=== PATIENT | male | born 1945 | race Caucasian/White ===

== ENCOUNTER 2020-11-02 10:26 | Outpatient (CLI) | payer MEDICARE, SELFPAY ==
--- NOTE | ~2020-11-02 | CT_ITS ---
EXAMINATION: CT brain wo con DATE: 11/02/2020 10:53 INDICATION: Alzheimer's dementia, behavioral disturbance. Urinary incontinence. Frequent falls. TECHNIQUE: Computed tomography (CT) of the head was performed without intravenous contrast. The mA wa s adjusted according to patient size. Iterative reconstruction technique was employed. Exam dose: 60 5.33 mGy-cm total exam DLP. COMPARISON: 05/16/2015 MRI brain/brainstem 05/16/2015 CT brain FINDINGS: Again noted is central and cortical cerebral and cerebellar atrophy. There is prominent dim inished attenuation of the subcortical and periventricular cerebral white matter. Bilateral carotid s iphon internal carotid artery calcifications are noted. No intracranial mass lesion or hemorrhage or cerebrovascular accident is evident. No midline shift or mass effects. No subdural or epidural hematoma. No fracture or bone destruction of the cranial vault. Included paranasal sinuses and mastoid air cell s are normally developed and aerated. IMPRESSION: Cerebral atherosclerosis and chronic small vessel ischemic changes of the cerebral white matter Cerebral and cerebellar atrophy No acute intracranial finding or skull fracture or significant change since 05/16/2015 Reviewed, dictated and finalized at [facility]. Reviewed, dictated and finalized at [facility]. [facility] DUTY NURSE IMPRESSION: Cerebral atherosclerosis and chronic small vessel ischemic changes of the cerebral white matter Cerebral and cerebellar atrophy No acute intracranial finding or skull fracture or significant change since 04/18
== END 2020-11-02 10:27 | disposition home or self-care (01) ==
LOC: ANHIMG 10:34
PROVIDERS: PCP Family Medicine; Visit Provider Psychiatry & Neurology Neurology
DX: R32 Unspecified urinary incontinence (principal); G30.9 Alzheimer's disease, unspecified; F02.80 Dementia in other diseases classified elsewhere, unspecified severity, without behavioral disturbance, psychotic disturbance, mood disturbance, and anxiety; I67.2 Cerebral atherosclerosis
CPT/HCPCS: 70450

== ENCOUNTER 2021-01-27 05:57 | Emergency (ER) | payer MEDICARE, SELFPAY ==
[2021-01-27] VITALS (12 sets, daily range): BP systolic 101–130; BP diastolic 41–90; PULSE 52–59; RESP 10–16; TEMP 36.4; O2SAT 96–100
--- NOTE | ~2021-01-27 | CT_ITS ---
EXAMINATION: CT abdomen pelvis w con DATE: 01/27/2021 07:09 INDICATION: Left lower quadrant abdominal pain. TECHNIQUE: Computed tomography (CT) of the abdomen and pelvis was performed with 100 mL Omnipaque-350 intravenous contrast. Automated exposure control and iterative reconstruction technique were employe d. The dose-length product was 1135.82 mGy-cm. COMPARISON: None FINDINGS: Bands of discoid atelectasis at the visualized bilateral lower lungs. Calcified left lower lobe nodul e consistent with old granulomatous disease. Heart size is normal. Atherosclerotic coronary artery ca lcific lesion. No pericardial or pleural effusion. Liver, gallbladder, spleen, pancreas and bilateral adrenal glands are normal. Mild bilateral renal atrophy. 1.9 cm intermediate attenuation lesion in t he interpolar region of the left kidney. The lower pole there is a 1.5 cm complex cystic lesion with thick calcification along the peripheral rim and a likely internal septation (Bosniak 2F). Simple gil earing 1.7 cm parapelvic cyst at the lower pole of the left kidney. Prostatomegaly measuring 6.4 x 5. 5 cm. Bladder is normal. The proximal sigmoid colon extends into a large left inguinal hernia. Fluid attenuation likely plug for hernia repair is seen within the right inguinal canal. Bowels are otherwi se unremarkable with no obstruction or abnormal bowel wall thickening. Normal appendix. There is calc ified atherosclerosis of the aorta and many of the other arteries. Moderate spondylosis and chronic m ild anterior wedging of several vertebral bodies at the lower thoracic spine. IMPRESSION: 1. Portion of the nonobstructed sigmoid colon extends into a large left inguinal hernia the caudal as pect of which extends beyond the [id number]. Likely prior right inguinal hernia repair. Correlate with surgical history. 2. 1.9 cm indeterminate intermediate attenuation left renal lesion which could represent renal cell c arcinoma or complex proteinaceous/hemorrhagic cyst. Recommend pre and postcontrast MRI or CT for furt her evaluation of this as well as a second 1.5 cm Bosniak 2F lesion at the lower pole of the left kid tushar. Reviewed, dictated and finalized at [facility]. IMPRESSION: 1. Portion of the nonobstructed sigmoid colon extends into a large left inguina l hernia the caudal aspect of which extends beyond the [id number]. Likely pr ior right inguinal hernia repair. Correlate with surgical history. 2. 1.9 cm indeterminate intermediate attenuation left renal lesion which could represent renal cell carcinoma or complex proteinaceous/hemorrhagic cyst. Recom mend pre and postcontrast MRI or CT for further evaluation of this as well as a second 1.5 cm Bosniak 2F lesion at the lower pole of the left kidney.
--- NOTE | 2021-01-27 06:07 | ED.GENADULT ---
HPI - General Adult General Chief complaint: Urogenital-Male <Hector Burciaga MD - Last Filed: 01/27/21 06:11> Stated complaint: left groin pain and swelling <Hector Burciaga MD - Last Filed: 01/27/21 06:11> Time Seen by Provider: 01/27/21 05:57 <Hector Burciaga MD - Last Filed: 01/27/21 06:11> History of Present Illness HPI narrative: Patient is a 72-year-old gentleman who presents the emergency department chief complaint of left lower quadrant pain. Patient states that he has had some discomfort in his left groin currently the patient does not remember having pain as he has history of dementia. The reports coming from the senior care where they say that he has been having an uncomfortable feeling in his left lower quadrant since sometime in December. They reported this morning he was complaining of it a little bit more they decided to send him to the emergency department for further evaluation. Patient's reports that he had prior history of a hernia in the left lower quadrant <Hector Burciaga MD - Last Filed: 01/27/21 06:11> Related Data Allergies/adverse reactions: Allergies Allergy/AdvReac Type Severity Reaction Status Date / Time No Known Allergies Allergy Unverified 05/16/15 12:38 <Hector Burciaga MD - Last Filed: 01/27/21 06:11> Review of Systems Review of Systems: Narrative: A 10 system review of systems was completed on the patient and is negative except for what is stated in the HPI. Nursing and ancillary documentation was reviewed. <Hector Burciaga MD - Last Filed: 01/27/21 06:11> PMFSH Comments Patient has history of dementia Social history the patient is a resident of a local senior care <Hector Burciaga MD - Last Filed: 01/27/21 06:11> Exam Narrative: Exam Narrative: GENERAL: Well-appearing, well-nourished, and in no acute distress. HEAD: Normocephalic, atraumatic. EYES: PERRLA and EOMI. ENT: Nares clear, no rhinorrhea or epistaxis. Mucous membranes moist. NECK: Supple. CHEST: Clear to auscultation. No respiratory distress. HEART: Regular rate and rhythm. No murmur heard. Normal peripheral pulses. ABDOMEN: Soft, nontender, nondistended, normal active bowel sounds. EXTREMITIES: Normal range of motion. No edema. SKIN: Warm, dry, no rash. NEURO: No focal deficits. Alert and pleasantly confused at neurological baseline per the patient. PSYCH: Normal mood and affect. <Hector Burciaga MD - Last Filed: 01/27/21 06:11> Course Vital Signs Vital signs: Vital Signs Temperature 36.4 C 01/27/21 05:55 Pulse Rate 58 L 01/27/21 05:55 Respiratory Rate 13 01/27/21 05:55 Blood Pressure 130/73 01/27/21 05:55 Pulse Oximetry 97 01/27/21 05:55 Temperature 36.4 C 01/27/21 05:55 Pulse Rate 56 L 01/27/21 10:30 Respiratory Rate 16 01/27/21 10:30 Blood Pressure 101/66 01/27/21 10:01 Pulse Oximetry 98 01/27/21 10:30 <Hector Burciaga MD - Last Filed: 01/27/21 06:11> Vital Signs Temperature 36.4 C 01/27/21 05:55 Pulse Rate 58 L 01/27/21 05:55 Respiratory Rate 13 01/27/21 05:55 Blood Pressure 130/73 01/27/21 05:55 Pulse Oximetry 97 01/27/21 05:55 Temperature 36.4 C 01/27/21 05:55 Pulse Rate 56 L 01/27/21 10:30 Respiratory Rate 16 01/27/21 10:30 Blood Pressure 101/66 01/27/21 10:01 Pulse Oximetry 98 01/27/21 10:30 <Danny Leo MD - Last Filed: 01/27/21 12:09> Medical Decision Making MDM Narrative Medical decision making narrative: CT shows hernia without obstruction or other complication. He is no longer having any pain. Case discussed with Dr. Barcenas. He feels that if the pateint is pain free this does not need to be delt with acutely and he can follow-up with them in clinic. CT also showed renal lesion. Urology consulted. They will see the patient in clinic to arrange further work up. <Danny W
[2021-01-27 06:33] LABS: Basophils Absolute Auto 0.1 K/mm3 (0.0-0.1); Basophils Percent Auto 0.7 % (0.2-1.2); Eosinophils Absolute Auto 1.1 K/mm3 (0-0.3); Hematocrit 42.2 % (42.0-52.0); Immature Granulocyte Absolute 0.06 K/mm3 (0.00-0.031); Immature Granulocyte Percent A 0.7 % (0-0.5); Lymphocytes Absolute Auto 1.58 K/mm3 (0.9-3.2); Lymphocytes Percent Auto 18.8 % (18.3-44.2); Mean Corpuscular HGB Conc 33.2 g/dl (32-36); Mean Corpuscular Volume 93.6 fl (80-100); Mean Platelet Volume 10.6 fl (7.4-10.4); Monocytes Absolute Auto 1.1 K/mm3 (0.1-0.6); Monocytes Percent Auto 12.9 % (2.6-8.5); Neutrophils Absolute Auto 4.5 K/mm3 (1.3-6.7); Neutrophils Percent Auto 53.9 % (45.5-73.1); Platelet Count Result 205 k/mm3 (150-375); Red Blood Count 4.51 M/mm3 (4.6-6.20); Red Cell Distribution Width 12.5 % (11.5-14.5); White Blood Count 8.4 K/mm3 (4.5-10.0)
[2021-01-27 06:39] LABS: Lactic Acid Reflex 1.4 mmol/L (0.7-2.1)
[2021-01-27 06:41] LABS: Alanine Aminotransferase 63 U/L (4-50); Albumin Level 3.9 g/dL (3.5-5.1); Alkaline Phosphatase 97 U/L (38-126); Anion Gap 5 mmol/L (8-16); Aspartate Amino Transferase 55 U/L (17-59); Bilirubin,Total 1.6 mg/dL (0.2-1.3); Blood Urea Nitrogen 15 mg/dL (9-20); Calcium 9.6 mg/dL (8.4-10.2); Carbon Dioxide 31 mmol/L (22-30); Chloride 104 mmol/L (98-107); Estimated Glomerular Filt Rate 59; Glucose 114 mg/dL (75-110); Lipase 163 U/L (23-300); Potassium 4.2 mmol/L (3.4-5.0); Sodium 140 mmol/L (137-145)
--- NOTE | 2021-01-27 07:27 | PC.NURSE ---
Report received from ROLA Landin. Pt's at bedside. Made aware of pending CT Scan.
--- NOTE | 2021-01-27 09:27 | PC.NURSE ---
Pt has been unable to void. Preparing to straight cath patient.
[2021-01-27 09:46] LABS: Add Urine Microscopic? NO; Appearance Urine Clear (Clear); Bilirubin Urine Negative (Negative); Blood Urine Negative (Negative); Color Urine Straw (Yellow); Glucose Urine UA Negative (Negative); Ketones Urine Negative (Negative); Leukocyte Esterase Ur Negative LEU/UL (Negative); Nitrate Urine Negative (Negative); Protein Urine Negative (Negative); Urobilinogen Urine Negative mg/dL (<2.0)
--- NOTE | 2021-01-27 10:33 | PC.NURSE ---
Awaiting urology consult return call.
== END 2021-01-27 10:54 ==
PROVIDERS: Emergency Medicine; Emergency Provider Emergency Medicine; PCP Family Medicine
DX: K40.90 Unilateral inguinal hernia, without obstruction or gangrene, not specified as recurrent (principal); N28.9 Disorder of kidney and ureter, unspecified; F03.90 Unspecified dementia, unspecified severity, without behavioral disturbance, psychotic disturbance, mood disturbance, and anxiety
CPT/HCPCS: 36415; 51701; 74177; 80053; 81003; 83605; 83690; 85025; 99284; Q9967

== ENCOUNTER 2021-03-17 16:31 | Emergency (ER) | payer MEDICARE, SELFPAY ==
[2021-03-17] VITALS (14 sets, daily range): BP systolic 117–144; BP diastolic 70–81; PULSE 0–64; RESP 0–20; TEMP 36.5–36.6; O2SAT 72–99
--- NOTE | ~2021-03-17 | XR_ITS ---
EXAMINATION: XR chest 2V EXAM DATE: 03/17/2021 17:19 INDICATION: Weakness, altered mental status, hypotension. TECHNIQUE: Frontal and lateral projections of the chest obtained and reviewed. Comparison is made to prior examination from 05/16/2015. FINDINGS: Scattered regions of linear opacities bilateral mid and lower lung zones, probably difficul t atelectasis. No confluent consolidation, pneumothorax or pleural effusion. The cardiomediastinal si lhouette is prominent but magnified on this AP technique. There is aortic arteriosclerosis. There are bony degenerative changes. IMPRESSION: 1. Scattered regions of linear opacities probably subsegmental atelectasis. Reviewed, dictated and finalized at [facility].
--- NOTE | ~2021-03-17 | CT_ITS ---
EXAMINATION: CT brain wo con EXAM DATE: 03/17/2021 19:06 INDICATION: Temporary change in awareness. TECHNIQUE: Spiral CT of the head was performed without contrast. Axial, coronal and sagittal images were reviewed. The dose-length product (DLP) for this examination was 605.33 mGy-cm. The exposure w as tailored according to patient size, and iterative reconstruction (ASIR) was used as additional dos e reduction technique. Comparison is made to prior examination from 11/02/2020. FINDINGS: Study is limited due to patient motion. There is no definite acute intraparenchymal hemorrh age. No evidence of intraparenchymal brain mass lesion. Mojica-white differentiation is preserved. The re is moderate periventricular and subcortical hypodensity, nonspecific but probably related to small vessel ischemic disease. There is moderate prominence of the sulci and ventricles related to cereb ral atrophy. There is intracranial carotid arteriosclerosis. There are no extra-axial collections. There is no mass effect or midline shift. The orbits are unremarkable. Soft tissue is unremarkabl e. The visualized sinuses and mastoid air cells are well aerated. IMPRESSION: 1. Significantly limited from motion, but no acute intracranial findings identified. 2. Chronic age related findings. Reviewed, dictated and finalized at [facility]. IMPRESSION: 1. Significantly limited from motion, but no acute intracranial findings ident ified. 2. Chronic age related findings.
--- NOTE | 2021-03-17 16:36 | ECG_ITS ---
Measurements Intervals [place] Rate: 0 P: MA: 0 QRS: QRSD: 0 T: QT: 0 QTc: 0 Interpretive Statements SINUS RHYTHM EARLY PRECORDIAL R/S TRANSITION BORDERLINE T WAVE ABNORMALITY- INFERIOR LEADS BASELINE ARTIFACT- II, III, AVR, AVF, V1-V6 BORDERLINE ECG Electronically Signed On 03-17-2021 17:05:10 CDT by Kam Miller D.O.
--- NOTE | 2021-03-17 17:41 | ED.GENADULT ---
HPI - General Adult General Chief complaint: Unspecified Stated complaint: lethargic, low blood pressure Time Seen by Provider: 03/17/21 16:58 Source: patient and EMS Mode of arrival: EMS Limitations: no limitations History of Present Illness HPI narrative: Patient is a 75-year-old male brought in by EMS after the residential called regarding patient being difficult to arouse and hypotension. Upon EMS arrival patient was alert and awake, checked his blood pressure it was 118/72 and blood sugar of 145. Patient upon arrival to the emergency room is alert and awake, has no complaints. Patient denies any headache, dizziness, chest pain, shortness of breath, bowel pain, nausea, vomiting, diarrhea, fever or chills. Related Data Allergies Allergy/AdvReac Type Severity Reaction Status Date / Time No Known Allergies Allergy Unverified 05/16/15 12:38 Review of Systems Review of Systems: All systems reviewed & are unremarkable except as noted in HPI and below Constitutional: Constitutional: Denies body ache(s), Denies chills, Denies excessive sweating, Denies fatigue, Denies fever(s), Denies headache(s), Denies lethargy, Denies malaise, Denies weakness and Denies weight loss Eyes: Eyes: Denies blurry vision, Denies change in vision and Denies loss of vision ENT: Denies dizziness, Denies ear discharge, Denies headache(s), Denies lip swelling, Denies epistaxis, Denies nasal congestion, Denies neck pain, Denies throat swelling and Denies tongue swelling Cardiovascular: Cardiovascular: Denies chest pain, Denies chest pain at rest, Denies chest pain with activity, Denies diaphoresis, Denies rapid heart rate, Denies edema, Denies irregular heart rhythm, Denies lightheadedness, Denies palpitations, Denies dyspnea and Denies dyspnea on exertion Respiratory: Respiratory: Denies chest congestion, Denies cough, Denies hemoptysis, Denies dyspnea and Denies dyspnea on exertion Gastrointestinal: Gastrointestinal: Denies abdominal pain, Denies melena, Denies hematochezia, Denies diarrhea, Denies nausea, Denies vomiting and Denies hematemesis Musculoskeletal: Musculoskeletal: Denies abnormal gait, Denies deformity, Denies joint swelling, Denies limited range of motion, Denies neck pain and Denies numbness Neurologic: Denies Abnormal speech present, Denies abnormal gait, Denies confusion, Denies dizziness, Denies headache(s), Denies focal weakness, Denies loss of vision, Denies numbness, Denies Other visual disturbances, Denies Sensory deficit (Neuro) and Denies weakness Psychiatric: Psychiatric: Denies confusion, Denies depression, Denies auditory hallucinations, Denies homicidal ideation and Denies suicidal ideation Endocrine: Endocrine: Denies cold intolerance, Denies excessive sweating, Denies fatigue, Denies heat intolerance and Denies palpitations Hematologic/Lymphatic: Hematologic/Lymphatic: Denies easy bleeding and Denies easy bruising Allergic/Immunologic: Allergic/Immunologic: Denies lip swelling, Denies throat swelling and Denies tongue swelling PMFSH Social History Social History Gender identity (if verbalized by the patient): Male Comments Past medical history: Dementia Family history: Unknown Social history: Non-smoker no EtOH use residential resident at the memory care unit Exam Const: General: cooperative, healthy appearing, comfortable, no acute distress, well developed, alert and awake Orientation/consciousness: oriented to person and oriented to place Limitations: no limitations HENMT: Head: normal to inspection, normocephalic and atraumatic Ears: hearing grossly normal bilaterally, TM normal on the right and TM normal on the left General nose exam: Normal external nose present, Normal nares present and No nasal discharge present Face and sinus: normal facial exam Mouth: Yes Normal oral and palatal mucosa present, Yes lip normal, Yes tongue normal and Yes oropharynx normal Thr
[2021-03-17 17:56] LABS: Basophils Absolute Auto 0.1 K/mm3 (0.0-0.1); Basophils Percent Auto 0.7 % (0.2-1.2); Eosinophils Absolute Auto 0.8 K/mm3 (0-0.3); Eosinophils Percent Auto 8.5 % (0-4.4); Hematocrit 43.8 % (42.0-52.0); Immature Granulocyte Absolute 0.05 K/mm3 (0.00-0.031); Immature Granulocyte Percent A 0.5 % (0-0.5); Lymphocytes Absolute Auto 1.37 K/mm3 (0.9-3.2); Lymphocytes Percent Auto 14.2 % (18.3-44.2); Mean Corpuscular Hemoglobin 30.2 pg (26-34); Mean Corpuscular Volume 94.6 fl (80-100); Mean Platelet Volume 10.2 fl (7.4-10.4); Monocytes Absolute Auto 1.1 K/mm3 (0.1-0.6); Neutrophils Absolute Auto 6.3 K/mm3 (1.3-6.7); Neutrophils Percent Auto 65.1 % (45.5-73.1); Platelet Count Result 231 k/mm3 (150-375); Red Blood Count 4.63 M/mm3 (4.6-6.20); Red Cell Distribution Width 12.5 % (11.5-14.5); White Blood Count 9.6 K/mm3 (4.5-10.0)
[2021-03-17 18:17] LABS: Alanine Aminotransferase 43 U/L (4-50); Albumin Level 4.2 g/dL (3.5-5.1); Alkaline Phosphatase 106 U/L (38-126); Anion Gap 9 mmol/L (8-16); Aspartate Amino Transferase 44 U/L (17-59); Bilirubin,Total 1.4 mg/dL (0.2-1.3); Blood Urea Nitrogen 15 mg/dL (9-20); Calcium 9.8 mg/dL (8.4-10.2); Carbon Dioxide 28 mmol/L (22-30); Chloride 106 mmol/L (98-107); Estimated CRCL calculation 55 ml/min; Estimated Glomerular Filt Rate > 60; Glucose 131 mg/dL (75-110); Potassium 4.1 mmol/L (3.4-5.0); Sodium 143 mmol/L (137-145)
[2021-03-17 18:38] LABS: Add Urine Microscopic? YES; Appearance Urine Clear (Clear); Bilirubin Urine Negative (Negative); Blood Urine Negative (Negative); Color Urine Yellow (Yellow); Glucose Urine UA Negative (Negative); Ketones Urine Negative (Negative); Leukocyte Esterase Ur Negative LEU/UL (Negative); Mucus Urine Rare /lpf; Nitrate Urine Negative (Negative); Protein Urine Negative (Negative); Specific Grav Ur 1.018 (1.001-1.035); Urobilinogen Urine Negative mg/dL (<2.0); WBC Urine 0-3 /hpf
--- NOTE | 2021-03-17 20:58 | PC.NURSE ---
called [facility] to request transport. return call at [phone] and accepted trip.
--- NOTE | 2021-03-17 22:03 | PC.NURSE ---
[facility] here.
== END 2021-03-17 22:05 ==
PROVIDERS: Emergency Provider Emergency Medicine; PCP Family Medicine
DX: R41.82 Altered mental status, unspecified (principal); F03.90 Unspecified dementia, unspecified severity, without behavioral disturbance, psychotic disturbance, mood disturbance, and anxiety; R94.31 Abnormal electrocardiogram [ECG] [EKG]
CPT/HCPCS: 36415; 51701; 70450; 71046; 80053; 81001; 85025; 93005; 99284